=== PATIENT | male | born 1990 | race Two or more races ===

== ENCOUNTER 2018-05-13 07:25 | Emergency (ER) | payer SELFPAY ==
[~2018-05-13] VITALS: Ht 162.6 cm; Wt 63.5 kg
[2018-05-13 07:40] VITALS: BP 118/66
--- NOTE | 2018-05-13 07:40 | NUR ---
PT AMBULATORY TO ER BED 10, PRESENTS W RFA SWELLING POST IV/IM DRUG USE. SWELLING NOTED. 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 AWAITING MD HILL.
[2018-05-13] MEDS ORDERED: LIDOCAINE 1%-EPI 1:100,000 50 ML VIAL IJ ONE (08:00)
[2018-05-13] MEDS ORDERED: LIDOCAINE 1%-EPI 1:100,000 20 ML VIAL ONE (08:00)
--- NOTE | 2018-05-13 08:07 | NUR ---
INCISION AND DRAINAGE DONE BY DR SCHMIDT. PACKED AND DRESSED.
--- NOTE | 2018-05-13 08:26 | NUR ---
Patient discharged to home in stable condition. Written and verbal after care instructions given. Patient verbalizes understanding of instruction.
== END 2018-05-13 08:29 | disposition home or self-care (01) ==
LOC: ER 07:26
DX: L02.413 Cutaneous abscess of right upper limb (principal); L03.113 Cellulitis of right upper limb; F10.10 Alcohol abuse, uncomplicated; F17.200 Nicotine dependence, unspecified, uncomplicated; Y90.9 Presence of alcohol in blood, level not specified
CPT/HCPCS: 10060; 99283; A4606; A6402; A6403; A6407; J3490; Z7610